=== PATIENT | male | born 1980 | race Caucasian/White ===

== ENCOUNTER 2025-04-15 11:25 | Outpatient (REF) | payer OTHER, SELFPAY ==
--- NOTE | ~2025-04-15 | XR_ITS ---
EXAMINATION: XR LUMBOSACRAL SPINE CLINICAL INFORMATION: PAIN COMPARISON: Pain. TECHNIQUE: Three views of the lumbosacral spine. FINDINGS: Vertebral body heights are maintained. No visible acute fracture or spondylolisthesis. Disc spaces are maintained. Mild chronic appearing undulation of the inferior endplate of L5 vertebral body. Facet degeneration in the lower lumbar spine. No suspicious bony lesions. SI joints are symmetric. No abnormal soft tissue calcification. XR/XR lumbar spine 2-3V IMPRESSION: No radiographic evidence of acute fracture or spondylolisthesis. Electronically signed by: Evans Ware MD 04/16/2025 07:32 AM EDT
[2025-04-15 14:07] LABS: Hematocrit 42.0 % (42.0-52.0); Hemoglobin 13.8 g/dl (14.0-18.0); Mean Corpuscular HGB Conc 32.9 g/dl (31.0-36.0); Mean Corpuscular Hemoglobin 28.3 pg (27.0-33.0); Mean Corpuscular Volume 86.2 fL (80.0-98.0); NRBC Abs Auto 0.000 X10*3/uL (0.0-0.012); NRBC Pct Auto 0.0 /100WBC (0.0-0.2); Platelet Count 243 X10*3/uL (160-400); Red Blood Count 4.87 X10*6/uL (4.60-5.80); White Blood Count 7.0 X10*3/uL (4.8-10.8)
[2025-04-15 14:37] LABS: Alanine Aminotransferase 38 U/L (0-40); Albumin Level 4.4 g/dL (3.5-5.0); Alkaline Phosphatase 94 U/L (39-117); Anion Gap 12 (12-20); Aspartate Amino Transferase 26 U/L (5-37); Blood Urea Nitrogen 16 mg/dL (9-16); Calcium 8.7 mg/dL (8.4-10.2); Carbon Dioxide 27 mmol/L (22-29); Chloride 108 mmol/L (96-108); Estimated Glomerular Filt Rate > 60; HDL Cholesterol 48 mg/dL (>40); Potassium 4.2 mmol/L (3.3-5.1); Sodium 143 mmol/L (135-145); Total Protein 6.8 g/dL (6.5-8.0)
--- OUTSIDE RECORDS SUMMARY | 2025-04-15 15:57 | XMS_ITS | Clinical Summary ---
Author Organization [facility] Address [address] [place] [address] Phone Care Team Providers Care Merchant Patroller Name Role Phone Unknown, Unknown Primary Care Provider Unavai lable Immunizations Immunization Administration Dates Next Due Influenza Quadrivalent Preservative Free IM 03/26 Social History Tobacco Use Types Packs/Day Years Used Date Smoking Tobacco: Never Assessed Sex and Gender Information Value Date Recorded Sex Assigned at Not on file Legal Sex Male 5:19 PM EST Gender Identity Not on file Sexual Orientation Not on file Plan of Treatment Not on file Medical Devices Not on file Care Teams Merchant Patroller Relationship Specialty Start Date End Date Unknown, Unknown, PCP - General 04/13/20 Additional Source Comments The information contained in this document represents components of the legal health record. It is not the complete legal health record.[facility]
[2025-04-19 16:19] LABS: Lipoprotein Asso Phospholip A2 141 (<124)
== END 2025-04-15 11:26 | disposition home or self-care (01) ==
LOC: HO.CHCLDS 11:25
PROVIDERS: PCP Internal Medicine; Visit Provider Internal Medicine
DX: Z00.00 Encounter for general adult medical examination without abnormal findings (principal); Z13.1 Encounter for screening for diabetes mellitus; Z13.6 Encounter for screening for cardiovascular disorders; K21.9 Gastro-esophageal reflux disease without esophagitis; M54.50 Low back pain, unspecified
CPT/HCPCS: 36415; 72100; 80053; 83036; 83698; 83718; 83721; 85027; 86880

== ENCOUNTER → 2025-04-15 12:20 | Outpatient (BNV) | payer OTHER, SELFPAY | PROVIDERS: PCP Internal Medicine; Visit Provider Radiology Diagnostic Ultrasound | DX: M54.50 Low back pain, unspecified (principal) | CPT/HCPCS: 72100 ==